=== PATIENT | male | born 1950 | race Caucasian/White ===

== ENCOUNTER 2017-01-02 11:41 | Outpatient (CLI) | payer BC ==
[~2017-01-02] VITALS: Ht 181.6 cm; Wt 94.5 kg
[2017-01-02] MEDS ORDERED: OXYC-536 PO (11:52)
[2017-01-02] MEDS ORDERED: AMLO5TAB4 PO (11:52)
[2017-01-02] MEDS ORDERED: TIZA2CAP PO (11:52)
[2017-01-02] MEDS ORDERED: ALPR1TAB2 PO (11:52)
[2017-01-02] MEDS ORDERED: POLY17PO6 PO (11:52)
[2017-01-02] MEDS ORDERED: FLUO10CA17 PO (11:52)
[2017-01-02 11:53] VITALS: BP 126/80; PULSE 66; RESP 18; Ht 181.6 cm; Wt 94.5 kg
--- NOTE | 2017-01-02 16:05 | CONS ---
Date/Time of Note Date/Time of Note DATE: 01/02/17 TIME: 16:02 Assessment/Plan Assessment/Plan Additional Assessment/Plan [facility] INITIAL OUTPATIENT CONSULTATION NOTE DATE OF CONSULTATION: 01/02/2017 PLACE OF SERVICE: [facility] ASSESSMENT AND PLAN: A very-pleasant 66-year-old gentleman with a number of comorbidities (see below) who has a rather complex midline ventral incisional hernia. I do believe that he is a surgical candidate and that with an experienced hernia specialist with appropriate knowledge of component separation , there be a good chance that weight 1 operation is complex ventral hernia can be addressed. This should be done in a layered fashion using large piece of mesh. Since I myself do not have as much experience with this operation, I recommended that we refer the patient to a hernia specialist (Dr. Darien Young) Y believe more than qualifies for above. I did have a phone conversation with Dr. Young and introduced the patient and her kindly asking for expedited authorization for referral of the patient. Explained all of the above to the patient (no family present in the room with the patient) and answered all of his questions. Patient appeared to understand and agreed with plans. With above assessment, I've recommended the followin. Referral to Dr. Darien Young 2. Adopt a healthy lifestyle to bring the BMI back to between 18-24 3. Follow-up with primary care physician 4. Follow-up with us as needed Thank you very much for having me involved in the care of this very pleasant patient and wonderful family. If you have any questions, please feel free to contact me at [phone]. Nature of presenting problem: High severity Please note that, given the extensive number of diagnoses or management options , the extensive amount and/or complexity of data needed to be reviewed ( including more than 100 pages of typed medical records from different hospitals and different timeframes requiring at least 20 more extra minutes for review than usual), and high risk of complications and/or morbidity or mortality, this qualifies as high complexity type of decision-making. Disclaimers: 1. Inadvertent spelling and grammatical errors are likely due to electronic health record (EHR)/dictation software used and do not reflect on the quality of delivered patient care. 2. The electronic timestamp recorded on this note does not necessarily reflect the actual date and time of the visit or the service. 3. Portions of this note may have been created through electronic templates and computer algorithms that might bring in information either from the system or from other physicians and providers. Please note that such information may or may not contain errors, the occurrence of which are outside of my control. In general (but not always) this happens either in the beginning or at the end of the note. The portion of the note that I have created are generally done in 1 continuous block of text, flanked at the beginning and at the end by " ", and entered into one field in the EHR. 4. There may be other unanticipated errors in the note that are outside of my control. I can only attest to the portions of the note that I have created. Updated clinical summary: A very-pleasant 66-year-old gentleman with a number of comorbidities (see below ) who has a rather complex midline ventral incisional hernia. Comorbidities: 1. BMI 28.7 2. Status post perforated diverticulitis in the emergency operation and [facility] 05/16/2014 with a Marmolejo's procedure 3. Status post takedown of colostomy and reversal of Marmolejo's procedure at [facility] by Dr. Michaels 11/26/2014 05/16/2014 4. Chronic pain syndrome on narcotics 5. History of marijuana use 6. Hypertension 7. History of lung collapse 05/05/2014 8. Gastroesophageal reflux disease 9. Anxiety 10. Mention of COPD in the chart 11. Decreased visual acuity 12. Decreased hearing of both ears 13. Tinea barbae 14. Fatigue 15. 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 Hyperlipidemia CONSULTATION REQUESTED BY: Ericka William MD Dear Dr. William, Thank you very much for the opportunity to participate in the care of this very pleasant gentleman and his wonderful family. HISTORY OF PRESENT ILLNESS: The patient is a very pleasant 66-year-old gentleman with multiple comorbidities as mentioned above home we were kindly asked consult regarding management of ventral incisional hernia. Patient has had a rather complicated history since 2014 when the underwent emergency surgery at [facility] for what appears to be perforated diverticulitis that required a Marmolejo's procedure with colostomy placement. Colostomy was taken down later the same year at [facility]. The patient has had development of a bulge along the incision since the operation and he was referred to us for possible surgical management of this issue. Patient reports gaining a few pounds extra the last few months and noticing the bulge more so now than a few months ago. He does have chronic pain syndrome and is on narcotics on a routine basis. He reports minor discomfort along the hernia site and appears to have mainly the bulge as the reason for seeking care. No previous episodes of reported bowel obstruction. Patient reports that hernia easily reduces with very little to no effort. Does not bother him when he is sitting down or laying down but has decreased his ability to exercise and he believes this is 1 of the reasons he has gained weight. Has not had more surgery since the operation in 2014 at [facility] for takedown of the colostomy per report. Has a number of other medical issues as outlined above but no major other complaints during the visit. ALLERGIES: NO KNOWN DRUG ALLERGIES MEDICATIONS Documented in the electronic records and reviewed by me. Please see the electronic records for details. SOCIAL HISTORY: The patient lives with family. His and he have 2 children , both boys in their 20s. Second child has developmental delays.-Tob (but does report occasional marijuana use); occasional use of ETOH reported;-IVDU. 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 FAMILY HISTORY: Heart disease in father (? Hypertension); history of stroke in mother. There are no other significant medical, surgical or oncologic issues in the family as reported by the patient or reflected in the chart. REVIEW OF SYSTEMS: Other than mentioned above, there were no other pertinent positives or pertinent negatives in an otherwise complete 14 point review of systems. PHYSICAL EXAMINATION GENERAL: The patient appears to be a very pleasant gentleman of non- descent sitting in a chair, appearing stated age,] and otherwise in no acute distress. BMI: 28.7 VITAL SIGNS: AVSS (please also see auto important data if available as well as the electronic records) HEENT: Normocephalic and atraumatic. Extraocular muscles and hearing are grossly intact bilaterally and symmetrically. Sclerae are nonicteric. Oral cavity is clear; oral mucosa appear to be pink and moist. Dentition: Fair to poor. NECK: Supple. There is no lymphadenopathy or JVD. There is no submental, submandibular or supraclavicular lymphadenopathy. CHEST: Rises symmetrically with each breath; patient is breathing comfortably. There are no audible wheezes, rales or rhonchi on the gross exam. HEART: Pulse is regular and palpable on the right wrist. Capillary refill is normal. Carotid pulses are palpable bilaterally and symmetrically in the neck. EXTREMITIES: Lower extremities contain no pitting edema around the ankles bilaterally and symmetrically. ABDOMEN: Abdomen is soft, nontender and nondistended. No evidence of ascites, organomegaly, caput medusae, engorged subcutaneous veins, or other abnormalities. There is a well-healed midline incision extending from above the umbilicus down to the suprapubic region with an associated irregular mass corresponding to ventral incisional hernia. There is at least one 10 cm defect in the upper portion of this incision and perhaps as many as 2 other smaller defects along the midline. There is obvious protrusion of intestinal contents through the hernia defect site using Valsalva technique. Area is generally nontender to palpation. The bowel appears to be very easily reducible and spontaneously does so without significant effort. There are no peritoneal signs or guarding. SKIN: Appears to be pink and feels warm to touch. NEUROLOGIC: Awake, alert, and follows commands appropriately. LABORATORY DATA: Labs from May 2016 platelet count 237, hemoglobin 13.2, INR 1.0, lipase less than 5, total bilirubin 1.4, albumin 3.3, AST 238, ALT 254, alkaline phosphatase 300, creatinine 0.8 IMAGING: See electronic chart. Please note that I've personally reviewed all pertinent available images and I agree in general with their overall reported findings. CT scan abdomen and pelvis [facility] 05/22/2016 showed scattered groundglass opacity in the left lung base and trace in the right lung base the bronchial vascular distribution which may reflect recent aspiration versus bronchopneumonia. Moderate stool burden. 23 mm saccular aneurysm with calcifications at the bifurcation of left common iliac artery. 19 mm cystic lesion in the tail of the pancreas and no specific mention of a large abdominal wall hernia. CT scan [facility] 05/04/2016 diastases of the rectus muscles and anterior bulging of bowel loops along the midline along with a small fat- containing ventral hernia centered to the right of midline just above the level of the umbilicus and bilateral fat-containing inguinal hernias. Consultation Date/Type/Reason Admit Date/Time Exam/Review of Systems Vital Signs Vitals Vital Signs Date Time Temp Pulse Resp B/P Pulse Ox O2 Delivery O2 Flow Rate FiO2 01/02/17 11:53 97.6 66 18 126/80 98 Room Air SHAWN LOCKHART M.D. Jan 02, 2017 16:05
== END 2017-01-02 17:00 | disposition home or self-care (01) ==
LOC: HPC 11:41
PROVIDERS: ATTEND Transplant Surgery
DX: K43.2 Incisional hernia without obstruction or gangrene (principal); I10 Essential (primary) hypertension; F41.9 Anxiety disorder, unspecified; J44.9 Chronic obstructive pulmonary disease, unspecified; E78.5 Hyperlipidemia, unspecified; M51.35 Other intervertebral disc degeneration, thoracolumbar region; G89.29 Other chronic pain; K21.9 Gastro-esophageal reflux disease without esophagitis
CPT/HCPCS: G0463